=== PATIENT | female | born 1960 | race Two or more races ===

== ENCOUNTER → 2024-12-22 | Outpatient (CLI) | payer MEDICARE, BC, SELFPAY ==
--- NOTE | 2024-12-22 08:46 | XR_ITS ---
Examination: Thoracic spine 3 views Technique one AP lateral coned lateral upper dorsal spine 3 views Exam date and time: 2024 0916 hrs. Indications: Upper back pain beginning one week ago. Findings: Adequate alignment thoracic vertebral bodies No thoracic fracture Mild to moderate diffuse thoracic degenerative disc disease Impression: Mild to moderate diffuse thoracic degenerative disc disease
== END | disposition home or self-care (01) ==
PROVIDERS: PCP Specialist; Referring Provider Specialist; Visit Provider Specialist
DX: M51.34 Other intervertebral disc degeneration, thoracic region (principal)
CPT/HCPCS: 72072

== ENCOUNTER → 2024-12-28 | Outpatient (CLI) | payer MEDICARE, BC, SELFPAY ==
--- NOTE | 2024-12-28 10:30 | XR_ITS ---
Examination: Screening digital mammography, bilateral Computer aided detection 3-D breast Tomosynthesis, bilateral Date and time of exam: December 28, 2024 1016 hours Compared to mammograms dating to February 21, 2016 Indication: Screening Technique: Nonmagnified MLO, CC views of the breasts to been obtained, reconstructed from 3-D Tomosynthesis images. R2 computer aided detection program utilized for evaluation of suspicious masses and/or abnormal calcifications. 3-D Tomosynthesis images obtained. Findings: The breasts are heterogeneously dense, which may obscure small masses Benign calcifications. No interval suspicious masses Impression: BI-RADS category II: Benign Findings. Recommend 1 year follow-up mammogram.
== END | disposition home or self-care (01) ==
PROVIDERS: PCP Specialist; Referring Provider Specialist; Visit Provider Specialist
DX: Z12.31 Encounter for screening mammogram for malignant neoplasm of breast (principal); R92.323 Mammographic fibroglandular density, bilateral breasts; R92.1 Mammographic calcification found on diagnostic imaging of breast
CPT/HCPCS: 77063; 77067

== ENCOUNTER → 2025-08-03 | Outpatient (CLI) | payer MEDICARE, BC, SELFPAY ==
[2025-08-03 09:49] LABS: Basophils # (Auto) 0.1 Thou/mm3 (0.0-0.2); Basophils % (Auto) 1 % (0-2.5); Eosinophils # (Auto) 0.3 Thou/mm3 (0.0-0.5); Eosinophils % (Auto) 3 % (0-10); Hematocrit 44.1 % (36.0-46.0); Hemoglobin 14.6 g/dL (12.0-16.0); Immature Granulocytes Auto 0.04 Thou/mm3 (0.00-0.00); Lymphocytes # (Auto) 3.2 Thou/mm3 (1.0-4.8); Lymphocytes % (Auto) 31 % (10-50); Mean Corpuscular HGB Conc 33.1 g/dl (31.0-37.0); Mean Corpuscular Hemoglobin 29.8 pg (25.0-35.0); Mean Corpuscular Volume 90 fL (80-100); Monocytes # (Auto) 0.6 Thou/mm3 (0.0-0.8); Monocytes % (Auto) 6 % (0-12); Neutrophils # (Auto) 6.1 Thou/mm3 (1.8-7.7); Neutrophils % (Auto) 59 % (37-80); Nucleated Red Blood Cell # 0.00 Thou/mm3 (0.00-0.00); Nucleated Red Blood Cell % 0 /100 WBC (0); Platelet Count 154 Thou/mm3 (140-440); RDW Standard Deviation 40.0 fL (36.4-46.3); Red Blood Count 4.90 Miln/mm3 (4.00-5.20); White Blood Count 10.2 Thou/mm3 (3.6-11.0)
--- NOTE | 2025-08-03 09:59 | XR_ITS ---
Examination: Abdomen sonogram, complete Date and time of exam: August 03, 2025, 1048 hours INDICATIONS: Lower abdominal pain beginning 1 month ago. Technique: Multiple real-time grayscale transabdominal sonographic images of the abdomen have been obtained. Findings: Absent gallbladder Normal common bile duct 0.4 cm Pancreatic head 2.9 cm Aorta not enlarged. Liver 12.9 cm fatty infiltration Normal hepatopetal portal venous flow Patent IVC Right kidney 9.7 cm renal cortex 1.1 cm Left kidney 9.9 cm renal cortex 1.7 cm Moderate renal scarring Spleen 9.2 cm IMPRESSION: Absent gallbladder Normal common bile duct Moderate renal scar formation
--- NOTE | 2025-08-03 09:59 | XR_ITS ---
Examination: Pelvic ultrasound, transabdominal, complete Technique: Transabdominal ultrasound of the pelvis performed using grayscale imaging Date and time of exam: August 03, 2025, 1035 hours INDICATIONS: Lower abdominal pain beginning 1 month ago. FINDINGS: Uterus 8.0 cm anterior uterine fundal mass 14 x 9 x 11 mm Endometrial stripe 0.3 cm Right ovary 2.8 cm arterial flow. Left ovary 3.0 cm arterial flow IMPRESSION: Small area of uterine fibroid degeneration as above
[2025-08-03 10:06] LABS: Sed Rate (ESR) 5 mm/hr (0-30)
[2025-08-03 10:13] LABS: AFP Non-Pregnant 2.90 ng/mL (<8.10)
[2025-08-03 10:20] LABS: Alanine Aminotransferase 45 U/L (10-49); Albumin, Serum 4.8 gm/dL (3.4-4.8); Albumin/Globulin Ratio 2.5 (1.2-2.2); Alkaline Phosphatase 69 U/L (46-116); Anion Gap 9 (7-16); Aspartate Amino Transferase 31 U/L (0-34); BUN/Creatinine Ratio 14 Ratio (12-20); Bilirubin,Total 0.8 mg/dL (0.3-1.2); Blood Urea Nitrogen 11 mg/dL (9-23); C-Reactive Protein < 0.5 mg/dL (0.0-0.9); Calcium 9.6 mg/dL (8.3-10.6); Calcium (Corrected) 9.6 mg/dL (8.5-10.1); Carbon Dioxide 26.9 mMol/L (20.0-31.0); Chloride 107 mMol/L (98-107); Creatinine (Component) 0.8 mg/dL (0.6-1.3); Globulin 1.9 gm/dL (2.3-3.5); Glucose 117 mg/dL (74-106); Osmolality,Calculated 285 (275-295); Potassium 4.3 mMol/L (3.4-5.1); Sodium 143 mMol/L (136-145); Total Protein 6.7 gm/dL (5.7-8.2); eGFR > 60 See Note
[2025-08-03 16:05] LABS: Glucose Estimated Average 126 mg/dL (80-131); Hemoglobin A1C 6.0 % Hgb (4.8-6.0)
[2025-08-03 16:18] LABS: Cardiac Risk Estimate 2.9 RATIO (3.7-5.6); Cholesterol 131 mg/dL (132-200); Free T4 (Free Thyroxine) 1.61 ng/dL (0.89-1.76); HDL Cholesterol 45 mg/dL (40-60); LDL Cholesterol,Calculated 57 mg/dL (0-130); Thyroid Stimulating Hormone 0.67 uIU/mL (0.55-4.78); Triglycerides 143 mg/dL (30-150)
--- NOTE | 2025-08-03 16:28 | XR_ITS ---
Examination: CT abdomen and pelvis without contrast. Coronal 3-D reconstructions. Sagittal 2-D reconstructions. Date and time of exam: August 03, 2025, 1644 hours, comparison May 14, 2013 INDICATIONS: Right lower abdominal pain beginning 3 weeks ago CTDI: vol (mGy): 6.80 DLP: (mGycm): 370 Technique: Axial images of the abdomen have been obtained, 3 mm slice thickness Intravenous contrast material has not been administered. Low dose protocols were performed. One or more of the following dose reduction techniques were used; automated exposure control, adjustment of the mA and/or KV according to patient size, use of iterative reconstruction technique. Findings: Nodules in the right lower lung zone, axial image 24, the largest 10 mm Fatty infiltration throughout the liver Absent gallbladder Spleen not enlarged No pancreatic or adrenal mass No renal or ureteral calculi, no hydronephrosis 12 mm fat-containing umbilical hernia Normal appendix No bowel obstruction Colonic diverticulosis, no diverticulitis Anteverted uterus Moderate osteopenia IMPRESSION: Nodules in the right lower lung zone, recommend PA and lateral chest follow-up Normal appendix No renal or ureteral calculi, no hydronephrosis Colonic diverticulosis, no diverticulitis
== END | disposition home or self-care (01) ==
LOC: CDIM 08:54 → COPL 09:10
PROVIDERS: PCP Specialist; Referring Provider Specialist; Visit Provider Radiology Diagnostic Radiology
DX: D25.9 Leiomyoma of uterus, unspecified (principal); Z90.49 Acquired absence of other specified parts of digestive tract; N28.89 Other specified disorders of kidney and ureter; R91.1 Solitary pulmonary nodule; K57.30 Diverticulosis of large intestine without perforation or abscess without bleeding; R10.33 Periumbilical pain
CPT/HCPCS: 36415; 74176; 76700; 76856; 80053; 80061; 82105; 83036; 84439; 84443; 85025; 85652; 86140

== ENCOUNTER → 2025-08-04 | Outpatient (CLI) | payer MEDICARE, BC, SELFPAY ==
--- NOTE | 2025-08-04 12:22 | XR_ITS ---
EXAMINATION: PA lateral chest 2 views TECHNIQUE: Upright PA lateral chest 2 views Date and time: August 04, 2025, 1242 hours INDICATIONS: Right chest pain beginning 6 months ago FINDINGS: Normal heart size The lungs are clear The osseous structures are intact IMPRESSION: No active disease
== END | disposition home or self-care (01) ==
PROVIDERS: PCP Specialist; Referring Provider Specialist; Visit Provider Specialist
DX: R91.8 Other nonspecific abnormal finding of lung field (principal)
CPT/HCPCS: 71046

== ENCOUNTER → 2025-08-04 | Outpatient (CLI) | payer MEDICARE, BC, SELFPAY ==
--- NOTE | 2025-08-04 15:45 | XR_ITS ---
Examination: CT chest, without intravenous contrast. Sagittal and coronal 2-D reconstructions. Exam date and time: August 04, 2025, 1550 hours INDICATIONS: Nodules in the right lower lung zone, the largest [address] abdomen study August 03, 2025 CTDI:vol (mGy) 10.6 DLP: (mGycm) 392 Technique: Multiple 3.0 mm axial sections of the chest to been obtained. Bone and lung density settings are obtained. Sagittal and coronal 2-D reconstructions have been obtained. Low dose protocols were performed. One or more of the following dose reduction techniques were used; automated exposure control, adjustment of the mA and/or KV according to patient size, use of iterative reconstruction technique. Findings: No thoracic aortic aneurysm dilatation Pulmonary artery segments are not enlarged. No paratracheal or tracheobronchial or bronchopulmonary adenopathy No pneumonia or pulmonary edema or pleural disease 11 mm, 4 mm pulmonary nodules right lower lobe image 134 Trace pericardial thickening Significant diffuse fatty infiltration throughout the liver Absent gallbladder No pancreatic or adrenal mass Spleen is not enlarged Mild renal scar formation, no hydronephrosis Moderate thoracic spondylosis IMPRESSION: 11 mm 4 mm pulmonary nodules right lower lobe, with this study as baseline recommend 6-month follow-up CT chest without contrast
== END | disposition home or self-care (01) ==
PROVIDERS: PCP Specialist; Referring Provider Specialist; Visit Provider Specialist
DX: R91.8 Other nonspecific abnormal finding of lung field (principal)
CPT/HCPCS: 71250

== ENCOUNTER → 2025-08-06 | Outpatient (CLI) | payer MEDICARE, BC, SELFPAY ==
[2025-08-06 08:55] LABS: Coccid Serology, CF (UCD)* See Sep Rpt
== END | disposition home or self-care (01) ==
LOC: COPL 08:41
PROVIDERS: PCP Specialist; Referring Provider Specialist; Visit Provider Specialist
DX: R91.8 Other nonspecific abnormal finding of lung field (principal)
CPT/HCPCS: 86171

== ENCOUNTER → 2025-08-26 | Outpatient (CLI) | payer MEDICARE, BC, SELFPAY ==
[2025-08-26 10:39] LABS: Coccid Serology, CF (UCD)* See Sep Rpt
[2025-08-26 12:05] LABS: D-Dimer 278 ng/mL (<600)
[2025-08-26 12:11] LABS: Alanine Aminotransferase 40 U/L (10-49); Albumin, Serum 5.0 gm/dL (3.4-4.8); Albumin/Globulin Ratio 2.4 (1.2-2.2); Alkaline Phosphatase 77 U/L (46-116); Anion Gap 9 (7-16); Aspartate Amino Transferase 26 U/L (0-34); BUN/Creatinine Ratio 15 Ratio (12-20); Bilirubin,Total 0.7 mg/dL (0.3-1.2); Blood Urea Nitrogen 12 mg/dL (9-23); Calcium 9.6 mg/dL (8.3-10.6); Calcium (Corrected) 9.6 mg/dL (8.5-10.1); Carbon Dioxide 27.4 mMol/L (20.0-31.0); Chloride 107 mMol/L (98-107); Creatinine (Component) 0.8 mg/dL (0.6-1.3); Globulin 2.1 gm/dL (2.3-3.5); Glucose 115 mg/dL (74-106); Osmolality,Calculated 285 (275-295); Potassium 4.2 mMol/L (3.4-5.1); Sodium 143 mMol/L (136-145); Total Protein 7.1 gm/dL (5.7-8.2); eGFR > 60 See Note
[2025-08-26 12:13] LABS: COVID-19 Antigen (In-House) Negative (Negative)
[2025-08-26 12:19] LABS: Influenza A Ag Negative; Influenza B Ag Negative
[2025-08-26 12:29] LABS: Basophils # (Auto) 0.1 Thou/mm3 (0.0-0.2); Basophils % (Auto) 1 % (0-2.5); Eosinophils # (Auto) 0.3 Thou/mm3 (0.0-0.5); Eosinophils % (Auto) 3 % (0-10); Hematocrit 44.5 % (36.0-46.0); Hemoglobin 14.8 g/dL (12.0-16.0); Immature Granulocytes Auto 0.04 Thou/mm3 (0.00-0.00); Lymphocytes # (Auto) 2.8 Thou/mm3 (1.0-4.8); Lymphocytes % (Auto) 26 % (10-50); Mean Corpuscular HGB Conc 33.3 g/dl (31.0-37.0); Mean Corpuscular Hemoglobin 29.7 pg (25.0-35.0); Mean Corpuscular Volume 89 fL (80-100); Monocytes # (Auto) 0.8 Thou/mm3 (0.0-0.8); Monocytes % (Auto) 7 % (0-12); Neutrophils # (Auto) 6.7 Thou/mm3 (1.8-7.7); Neutrophils % (Auto) 63 % (37-80); Nucleated Red Blood Cell # 0.00 Thou/mm3 (0.00-0.00); Nucleated Red Blood Cell % 0 /100 WBC (0); Platelet Count 91 Thou/mm3 (140-440); RDW Standard Deviation 40.0 fL (36.4-46.3); Red Blood Count 4.99 Miln/mm3 (4.00-5.20); White Blood Count 10.7 Thou/mm3 (3.6-11.0)
[2025-08-30 07:10] LABS: IgE, Serum* 79 kU/L (114 OR LESS)
== END | disposition home or self-care (01) ==
LOC: COPL 10:13
PROVIDERS: PCP Specialist; Referring Provider Specialist; Visit Provider Internal Medicine
DX: R05.3 Chronic cough (principal); R91.1 Solitary pulmonary nodule; R05.8 Other specified cough; Z20.828 Contact with and (suspected) exposure to other viral communicable diseases
CPT/HCPCS: 36415; 80053; 82785; 85025; 85379; 86171; 87502; 87811